=== PATIENT | male | born 1990 | race Caucasian/White ===

== ENCOUNTER 2020-05-12 09:44 | Emergency (ER) | payer SELFPAY ==
[~2020-05-12] VITALS: Ht 177.8 cm; Wt 90.7 kg
[2020-05-12 09:48] VITALS: BP 171/111
[2020-05-12] MEDS: LORazepam 1mg tab ORAL ONE ×2 (10:00→10:05)
--- NOTE | 2020-05-12 10:07 | Emergency Room Report ---
History of Present Illness General Chief Complaint: Overdose Source: Patient Present Illness HPI Disclaimer: Please note that this report is being documented using [employer]AG[employer] technology. This can lead to erroneous entry secondary to incorrect interpretation by the dictating instrument. Patient reports a HPI: 29-year-old male presents from the street due to methamphetamine intoxication. Patient apparently used methamphetamine last night. He waved down police for help. He denies any chest pain shortness of breath nausea or vomiting. Patient reports positive COVID-19 test 1 week ago. PMH: Schizophrenia PSH: Reviewed Social Hx: Methamphetamine abuse Allergies: Coded Allergies: No Known Allergies (Unverified , 05/12/20) COVID-19 Screening Contact w/high risk pt: No Experienced COVID-19 symptoms?: Yes COVID-19 Testing performed DIRECTOR OF DISTANCE LEARNING: No Patient History Reviewed Nursing Documentation: PMH: Agreed; PSxH: Agreed Nursing Documentation-PMH History Of Psychiatric Problem: Yes Review of Systems All Other Systems: negative except mentioned in HPI Physical Exam Vital Signs Date Time Temp Pulse Resp B/P (MAP) Pulse Ox O2 Delivery O2 Flow Rate FiO2 05/12/20 09:40 98.4 114 19 171/111 (131) 98 Room Air Sp02 EP Interpretation: reviewed, normal General Appearance: well appearing, no apparent distress Head: normocephalic, atraumatic Eyes: bilateral eye PERRL, bilateral eye EOMI ENT: hearing grossly normal, moist mucus membranes Neck: full range of motion, supple Respiratory: lungs clear, normal breath sounds, no rhonchi, no respiratory distress, no retraction, no wheezing Cardiovascular #1: normal peripheral pulses, no murmur, tachycardia Gastrointestinal: non tender, soft, non-distended, no guarding Neurologic: alert, oriented x3, no focal defects Psychiatric: no suicidal/homicidal ideation, other - Pressured speech, tangential thinking Skin: normal color, warm/dry Medical Decision Making Diagnostic Impression: Primary Impression: Methamphetamine abuse ER Course Patient presented from the street with what appears to be methamphetamine intoxication. Is mildly tachycardic but otherwise in no acute distress. Patient given Ativan and Haldol for agitation. After being given this he was calmer. He was alert and oriented x4 ambulatory with a steady gait. He had no suicidal or homicidal ideation. We planned to observe patient in the ER however he eloped during his observation period. Patient refused to return to the ER for further observation. Last Vital Signs Date Time Temp Pulse Resp B/P (MAP) Pulse Ox O2 Delivery O2 Flow Rate FiO2 05/12/20 09:48 98.4 114 19 171/111 98 Room Air Status: improved Disposition: Augustin Palma M.D. May 12, 2020 10:07
[2020-05-12] MEDS ORDERED: LORazepam Inj 2mg/ml 1ml IM ONE ×2 (10:15→10:45)
[2020-05-12] MEDS ORDERED: LORazepam Inj 2mg/ml 1ml ONE (10:33)
[2020-05-12] MEDS ORDERED: DiphenhydrAMINE 50mg/ml Inj ONE (10:33)
[2020-05-12] MEDS ORDERED: Haloperidol 5mg/ml Inj ONE (10:33)
[2020-05-12] MEDS ORDERED: Haloperidol 5mg/ml Inj IM ONE (10:45)
[2020-05-12] MEDS ORDERED: DiphenhydrAMINE 50mg/ml Inj IM ONE (10:45)
== END 2020-05-12 10:57 | disposition left against medical advice (07) ==
LOC: EDBD 09:44 → EMR 10:10
DX: F15.10 Other stimulant abuse, uncomplicated (principal); Z53.29 Procedure and treatment not carried out because of patient's decision for other reasons; Z86.19 Personal history of other infectious and parasitic diseases
CPT/HCPCS: 96372; 99283; J1200; J1630